=== PATIENT | male | born 1930 | race Asian ===

== ENCOUNTER 2018-12-03 19:44 | Emergency (ER) | payer OTHER ==
[~2018-12-03] VITALS: Ht 167.6 cm; Wt 59.0 kg
[2018-12-03 19:56] VITALS: Ht 167.6 cm; Wt 59.0 kg
[2018-12-03 21:47] VITALS: BP 149/88
== END 2018-12-03 21:47 | disposition home or self-care (01) ==
LOC: ED 19:44
DX: R55 Syncope and collapse (principal); Z13.89 Encounter for screening for other disorder; I10 Essential (primary) hypertension; Z95.1 Presence of aortocoronary bypass graft